=== PATIENT | female | born 1955 | race Two or more races ===

== ENCOUNTER 2018-09-01 17:49 | Emergency (ER) | payer OTHER ==
[2018-09-01 18:09] VITALS: BP 143/71; PULSE 74; TEMP 98.4; BMI 32.8
--- NOTE | 2018-09-01 19:01 | PDOC ---
History of Present Illness - General Chief Complaint: Injury Stated Complaint: SWOLLEN LEG Time Seen by Provider: 09/01/18 18:24 History Source: Patient Exam Limitations: No Limitations - History of Present Illness Initial Comments: 09/01/18 18:56 Patient states one month ago had a traumatic injury to her right great toenail and foot after a heavy patient with special-needs stomped her foot. States nailbed was avulsed, had some bleeding to the nail, but with soaking and triple antibiotic cream resolved. States a few days ago stubbed her toe causing a recurrence of pain, some bleeding, and dislodging of toenail which new nail had started to grow out. Patient is concerned about infection. States toe was swollen with some drainage. Timing/Duration: unsure Severity: mild, moderate Associated Symptoms: denies: fever/chills Past History - Past Medical History Allergies/Adverse Reactions: Allergies Allergy/AdvReac Type Severity Reaction Status Date / Time No Known Allergies Allergy Verified 09/01/18 18:06 Home Medications: Ambulatory Orders Amox-Tr/K Cl [Augmentin 875Mg Tablet] 1 tab PO BID #20 tablet 09/01/18 COPD: No - Suicide/Smoking/Psychosocial Hx Smoking History: Never smoked Have you smoked in the past 12 months: No Information on smoking cessation initiated: No Hx Alcohol Use: No Drug/Substance Use Hx: No Review of Systems - Review of Systems Able to Perform ROS?: Yes Is the patient limited Setswana proficient: Yes Constitutional: Yes: See HPI. No: Symptoms Reported, Chills, Fever, Malaise Musculoskeletal: Yes: Symptoms Reported, Joint Pain, Joint Swelling (right great toe ) Integumentary: Yes: Symptoms Reported, See HPI, Change in Hair/Nails, Erythema All Other Systems: Reviewed and Negative *Physical Exam - Vital Signs Last Vital Signs Temp Pulse Resp BP Pulse Ox 98.4 F 74 18 143/71 99 09/01/18 18:07 09/01/18 18:07 09/01/18 18:07 09/01/18 18:07 09/01/18 18:07 - Physical Exam General Appearance: Yes: Nourished, Appropriately Dressed, Apparent Distress HEENT: positive: [place], Normal ENT Inspection, TMs Normal, Pharynx Normal Neck: positive: Supple. negative: Lymphadenopathy (R), Lymphadenopathy (L) Respiratory/Chest: positive: Lungs Clear Extremity: positive: Normal Capillary Refill, Normal Inspection, Other (right great toenail avulsed, with noted crack at the base of nail. With pressure noted purulent foul-smelling drainage from subungual area. Has full range of motion to toe, does not appear to be erythematous however is slightly larger than the left great toe. ) Integumentary: positive: Erythema Neurologic: positive: manager wound II-XII NML intact, Fully Oriented, Alert, Normal Mood/ Affect, Normal Response *DC/Admit/Observation/Transfer Diagnosis at time of Disposition: Cellulitis of toe, right - Discharge Dispostion Disposition: HOME Condition at time of disposition: Stable Decision to Admit order: No - Prescriptions Prescriptions: Amox-Tr/K Cl [Augmentin 875Mg Tablet] 1 tab PO BID #20 tablet - Referrals - Patient Instructions Printed Discharge Instructions: DI for Cellulitis -- Adult Additional Instructions: Rest, keep area elevated. Avoid strenuous activity or exercise until wound is healed Use hot soaks to area to bring more blood to the surface and encourage drainage May change dressings as needed to keep clean - Allow water from shower to wash area thoroughly for 2-3 minutes, and pat dry upon exit of shower and replace dressing. Change his dressing daily until the wound is completely healed. 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
== END 2018-09-01 19:34 | disposition home or self-care (01) ==
LOC: JERFT 17:49
DX: L03.031 Cellulitis of right toe (principal); S91.201A Unspecified open wound of right great toe with damage to nail, initial encounter; W22.8XXA Striking against or struck by other objects, initial encounter; Y93.89 Activity, other specified; Y92.89 Other specified places as the place of occurrence of the external cause; Y99.8 Other external cause status
CPT/HCPCS: 99281-25